=== PATIENT | female | born 1935 | race Caucasian/White ===

== ENCOUNTER → 2016-12-24 | Outpatient (CLI) | payer OTHER ==
[~2016-12-24] MED LIST: ALBUTEROL2.5 MG/3 M IH; ALDACTONE50 MG PO; ATIVAN1 MG PO; ATORVASTATIN CA40 MG PO; CALTRATE 600 +1 EAC1 PO; CALTRATE PLUS1 EACH PO; COLACE100 MG PO; COLAZAL750 MG PO; COMPAZINE10 MG PO; DAILY VALUE1 EACH PO; DAILY VITAMIN1 EAC4 PO; DITROPAN XL10 MG PO; DULCOLAX10 MG PR; ELIQUIS5 MG PO; ENTOCORT EC3 MG PO; FEOSOL325 MG PO; GABAPENTIN300 MG PO; HALOPERIDOL2 MG/1 ML PO; KEFLEX500 MG PO; LASIX20 MG PO; LEVSIN0.125 MG PO; LIDODERM 5% P1 PATCH TD; LOSARTAN POTAS100 MG PO; METFORMIN HCL500 MG PO; METOPROLOL SUCC25 MG PO; METOPROLOL TART25 MG PO; MORPHINE CON20 MG/M1 PO; NEURONTIN300 MG PO; NITROGLYCERIN0.4 MG SL; OCEAN NASAL 0.645 ML BOTH NARES; OXYCODONE HCL5 MG PO; QUESTRAN PACKET4 GM PO; RANITIDINE HCL75 MG PO; SPIRIVA1 INHALATI IH; TYLENOL650 MG PR; ULTRAM50 MG PO; VITAMIN C500 M1 PO
== END | disposition home or self-care (01) ==
LOC: RAD 09:31
PROC: 0W9G3ZZ Drainage of Peritoneal Cavity, Percutaneous Approach (ICD-10-PCS; principal; 2016-12-24)
DX: C54.1 Malignant neoplasm of endometrium (principal); R18.0 Malignant ascites
CPT/HCPCS: 49083